=== PATIENT | male | born 1975 | race Caucasian/White ===

== ENCOUNTER 2018-11-12 19:06 | Inpatient (IN) ==
[2018-11-12] MEDS ORDERED: MULTI-VITAMIN INFUSION 10 ML, THIAMINE HCL 100 MG, FOLIC ACID 1 MG in SODIUM CHLORIDE 0... IV ONE (21:43)
[2018-11-12] MEDS ORDERED: LORazepam 1 MG TAB PO PRN (21:43)
[2018-11-12] MEDS ORDERED: FOLIC ACID 1 MG in SYRINGE 9.8 ML IV ONE (22:00)
[2018-11-12] MEDS ORDERED: THIAMINE HCL 100 MG in SYRINGE 9 ML IV ONE (22:00)
--- NOTE | 2018-11-13 04:35 | History & Physical Report ---
Date of Service November 13, 2018 Assessment & Plan (1) Alcohol withdrawal: Mr. Gayle is a 43 year old male with a past medical history of alcohol abuse, resulting in prior DTs and seizures who presents to [facility] as a direct transfer from [facility] for alcohol detoxification. -admit to telemetry -currently hemodynamically stable, EKG shows sinus bradycardia with no ischemic changes -initial labs ordered, including CBC, CMP, coag profile, folate, and B12 levels -toxicology screen at [facility] negative -pt placed on AWSS w/IV Ativan -banana bag, folic acid and thiamine ordered -NPO w/maintenance IVF - NS at 100 mls/hr -seizure precautions in place given hx of withdrawal seizures -low threshold to upgrade to ICU status and begin phenobarbital protocol -ECHO ordered to assess for alcohol induced CM -hold home gabapentin and trazodone -pantoprazole 40mg listed on home medication - will continue Hypertension -propranolol and clonidine listed as home medications, will continue clonidine to avoid rebound hypertension and hold propranolol -unsure if propranolol was prescribed for alternate indication, ie. esophageal varices - pt is unsure of the indication for this medication Tobacco Abuse -smoking cessation counselling Code status: FULL DVT Prophylaxis: SCDs Disposition: admitted to telemetry (2) Hypertension: (3) Tobacco abuse: History of Present Illness Chief Complaint: Alcohol Withdrawal Primary Care Provider: NO PCP Mr. Gayle is a 43 year old male with a past medical history of alcohol abuse, resulting in prior DTs and seizures who presents to [facility] as a direct transfer from [facility] for alcohol detoxification. The patient's last drink was on 11/11/2018 at approx 5PM. He states he has been drinking alcohol for approximately 20 years, and has a fifth of vodka daily. He notes that he has a history of DTs in the past, and has had seizures associated with alcohol withdrawals. He states his last episode of withdrawals was 2-3 months ago, and states that he did not seek medical attention for this. He endorses nausea and vomiting since his last drink, and reports he feels shaky. He denies chest pain, shortness of breath, or abdominal pain. He recently established care with a PCP, and has been started on several medications - all of which he does not remember the indications for. He denies a history of liver cirrhosis, and states he does not think he has a history of gastric/duodenal ulcers. Per review of records from [facility], the patient was administered 2mg IV Ativan prior to transfer, as well as a 1L NS bolus, 100mg IV thiamine, and 1mg IV folic acid. He remained hemodynamically stable during his time at [facility] and his transfer to [facility]. Allergies Allergy/AdvReac Type Severity Reaction Status Date / Time No Known Allergies Allergy Unverified 11/13/18 08:26 Home Medications Home Medications Medication Instructions Recorded Confirmed Type clonidine HCl 0 mg PO BID 11/13/18 11/13/18 History gabapentin 0 mg PO TID 11/13/18 11/13/18 History pantoprazole 0 mg PO DAILY 11/13/18 11/13/18 History propranolol 0 mg PO DAILY 11/13/18 11/13/18 History trazodone 0 mg PO HS 11/13/18 11/13/18 History chlordiazepoxide HCl 25 mg PO UD #12 cap 11/15/18 Rx folic acid 1 mg PO QAM #30 tab 11/15/18 Rx nicotine [Nicoderm CQ] 21 mg TRANSDERMAL QAM #30 ea 11/15/18 Rx thiamine HCl (vitamin B1) [Vitamin 100 mg PO QAM #30 tab 11/15/18 Rx B-1] Past Med/Surg History Social History Preferred Language: Urugu[place] Communication Ability: Effective Guide Tour Required: No Current Living Situation: Alone Feels Safe at Home: Yes Smoking Status: Current every day smoker Tobacco Type: cigarettes ; Cigarettes Per Day: 20 ; Hx Alcohol Use: Yes Alcohol type: hard liquor Hx Substance Use: No Review of Systems Constitutional: + malaise and + anorexia; no fever and no chills Respiratory: no cough, no dyspnea and no wheezing Cardiovascular: no chest pain, no palpitations, no lightheadedness, no syncope, no edema and no calf pain Gastrointestinal: + nausea and + vomiting; no abdominal pain and no change in bowel habits Genitourinary: no dysuria and no urinary frequency Physical Exam Constitutional: WD/WN, vitals as above cooperative; no acute distress Eyes: PERRL, conjunctivae normal, anicteric sclerae Respiratory: normal respiratory effort, lungs clear to auscultation Cardiovascular: RRR, no murmur, no edema Gastrointestinal (Abdomen): Percussion/Palpation: abdomen soft; abdomen nontender, no guarding and abdomen not rigid Skin: no rashes, warm and dry Neurologic: Cranial nerves 2-12 grossly intact 5/5 power in UE and LE Patient answers questions appropriately, but is easily distracted Code Status & VTE Plan VTE Prophylaxis Plan VTE Prophylaxis will be ordered: No Supervising Physician Co-Signing Physician Notes Attending addendum: I have physically seen this patient, have supervised the medical residents activities, and agree with the H&P unless as otherwise noted. Assessment and Plan: Alcohol withdrawal- Admit to monitored bed as transfer from [facility]. AWSS with IV Ativan. Banana bag every morning, followed by normal saline at 100 ml/hour Thiamine and folic acid p.o. Seizure precautions to history of withdrawal seizures Pantoprazole 40 mg p.o. daily. Zofran 4 mg IV every 6 hours as needed Serial CBC with differential, chemistry profile and magnesium level. Hypertension- Transfer records indicate being on propranolol and clonidine. Continue clonidine. Remainder of orders and notations as noted. PG Care Time/CCT Total # of Minutes Spent Total Time Spent with Patient: Total time spent is greater than 50% in coordi nation of care (as documented) at patient's floor/unit and/or counseling patient: Resident Activity Tracking Resident Involvement: Resident Care Provided Care Provided: Adult Hospital Medicine
[2018-11-13] MEDS: SODIUM CHLORIDE 0.9% 1000ML 1,000 ML IV SCH ×3 (04:45→16:42)
[2018-11-13 04:59] LABS: Albumin Level 3.7 gm/dl (3.4-5.0); BUN Creatinine Ratio 26.4 (10-20); Bilirubin Direct 0.3 mg/dl (0-0.2); Calcium 8.7 mg/dl (8.5-10.1); Creatinine Clr Calc Pharmacy 113.3 ml/min; Est GFR (African American) 130.2; Est GFR (Non-African American) 112.4; Potassium 3.9 mmol/L (3.5-5.1)
[2018-11-13 05:01] LABS: INR 1.1 (0.9-1.1); Partial Thromboplastin Time 26.7 Seconds (21.0-31.0); Prothrombin Time 10.8 Seconds (9.0-12.0)
[2018-11-13 05:02] LABS: Albumin Globulin Ratio 0.9 (0.9-2); Bilirubin,Total 1.2 mg/dl (0.2-1); Globulin 4.3 gm/dl (2.5-4.0)
[2018-11-13 05:05] LABS: Hematocrit (blood only) 45.2 % (42-52); Hemoglobin 16.1 g/dL (14.0-18.0); Mean Corpuscular Hemoglobin 34.5 pg (25-34); Mean Corpuscular Hgb Conc 35.6 g/dL (32-36); Mean Corpuscular Volume 96.8 fL (80-100); Mean Platelet Volume 11.2 fL (7.4-10.4); Platelet Count 94 K/uL (130-400); RDW Coefficient of Variation 13.1 % (11.5-14.5); RDW Standard Deviation 45.8 fL (36.4-46.3); Red Blood Count 4.67 M/uL (4.7-6.1); White Blood Count 5.57 K/uL (4.8-10.8)
[2018-11-13 05:06] LABS: Basophils # (auto) 0.04 K/uL (0-0.2); Basophils % (auto) 0.7 %; Eosinophils # (auto) 0.16 K/uL (0-0.5); Eosinophils % (auto) 2.9 %; Immature Granulocytes # (auto) 0.01 K/uL (0.00-0.02); Immature Granulocytes % (auto) 0.2 %; Lymphocytes % (auto) 25.1 %; Monocytes # (auto) 0.62 K/uL (0.11-0.59); Monocytes % (auto) 11.1 %; Neutrophils # (auto) 3.34 K/uL (1.4-6.5); Platelet Estimate Decreased (Normal); RBC Morphology Unremarkable
[2018-11-13] MEDS: PATIENT'S ALLERGY INFO NEEDS ENTERED SCH ×7 (05:42→08:31)
[2018-11-13 08:01] LABS: Folate (Folic Acid) 21.05 ng/ml (>5.38)
[2018-11-13] MEDS: cloNIDine HCl 0.1 MG TAB PO SCH ×2 (08:19→20:45)
[2018-11-13] MEDS: PANTOprazole 40 MG TAB PO SCH (08:19)
[2018-11-13] MEDS ORDERED: chlordiazePOXIDE ALCOHOL WITHDRAWL 50MG PO STA ×2 (08:38→10:38)
[2018-11-13] MEDS ORDERED: chlordiazePOXIDE HCl 25 MG CAP PO SCH (08:45)
[2018-11-13] MEDS ORDERED: PROPRANOLOL HCL 80 MG TAB PO SCH (09:00)
[2018-11-13] MEDS ORDERED: THIAMINE HCL 100 MG in SYRINGE 9 ML IV SCH (09:00)
[2018-11-13] MEDS ORDERED: FOLIC ACID 1 MG in SYRINGE 9.8 ML IV SCH (09:00)
--- NOTE | 2018-11-13 10:17 | Medical Student H&P ---
Date of Service November 13, 2018 History & Physical Identifying Data SAGAR OTERO is a 43-year-old M admitted on November 13, 2018 04:17 who currently lives in [] [alone] with []. SAGAR OTERO was admitted on a [201 voluntary] [302 involuntary] commitment. Patient is admitted from [home] [transfer from the medical floor]. The patient was brought to the ED by the [police] [family] [ambulance] [self transport]. Information provided by the patient is considered to be [reliable] [unreliable]. Chief Complaint "[]". 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 Current Living Situation: Alone Other Information That Helps Us Care for You: No Feels Safe at Home: Yes Safety Concerns: Feels Safe At This Time Smoking Status: Current every day smoker Tobacco Type: cigarettes ; Cigarettes Per Day: 20 ; Do You Dip or Chew Tobacco: No ; Hx Alcohol Use: Yes Alcohol type: hard liquor Hx Substance Use: No Physical Exam Vital Signs (Past 24 Hours) Last Vital Signs Temp 36.7 C 11/13/18 08:00 Pulse 85 11/13/18 09:00 Resp 18 11/13/18 09:00 BP 107/77 11/13/18 09:00 Pulse Ox 99 11/13/18 09:00 Results & Data Medications Administered Clonidine HCl (Catapres) 0.1 mg PO BID RAVIN Stop: 12/13/18 08:59 Last Admin: 11/13/18 08:19 Dose: 0.1 mg Documented by: [id number] Sodium Chloride (Nss 1000ml) 1,000 mls @ 100 mls/hr IV .Q10H RAVIN Stop: 12/12/18 21:44 Last Admin: 11/13/18 07:12 Dose: 80 mls/hr Documented by: [id number] Infusion: 11/13/18 07:12 Dose: 80 mls/hr Documented by: [id number] Admin: 11/13/18 04:45 Dose: 80 mls/hr Documented by: [id number] Thiamine HCl 100 mg/ Syringe 10 mls @ 2 mls/min IV QAM RAVIN Stop: 12/13/18 08:59 Last Admin: 11/13/18 08:22 Dose: 2 mls/min Documented by: [id number] Folic Acid 1 mg/ Syringe 10 mls @ 5 mls/min IV QAM RAVIN Stop: 12/13/18 08:59 Last Admin: 11/13/18 08:22 Dose: 5 mls/min Documented by: [id number] Pantoprazole Sodium (Protonix) 40 mg PO QAM RAVIN Stop: 12/13/18 08:59 Last Admin: 11/13/18 08:19 Dose: 40 mg Documented by: [id number]
[2018-11-13] MEDS ORDERED: NICOTINE 21 MG/24 HR TDSY TD ONE (11:00)
[2018-11-13 11:03] LABS: Amphetamines+Metham, Urine Neg (Neg); Barbiturates, Urine Neg (Neg); Benzodiazepine, Urine Neg (Neg); Cocaine, Urine Neg (Neg); MDMA (Ecstacy), Urine Neg (Neg); Methadone, Urine Neg (Neg); Opiate, Urine Neg (Neg); Phencyclidine, Urine Neg (Neg)
[2018-11-13] MEDS: chlordiazePOXIDE HCl 25 MG CAP PO SCH ×3 (12:14→22:31)
[2018-11-14] MEDS: chlordiazePOXIDE HCl 25 MG CAP PO SCH ×3 (05:32→18:55)
[2018-11-14] MEDS: SODIUM CHLORIDE 0.9% 1000ML 1,000 ML IV SCH (05:33)
[2018-11-14] MEDS: THIAMINE HCL 100 MG TAB PO SCH (08:16)
[2018-11-14] MEDS: cloNIDine HCl 0.1 MG TAB PO SCH ×2 (08:16→20:56)
[2018-11-14] MEDS: NICOTINE 21 MG/24 HR TDSY TD SCH (08:16)
[2018-11-14] MEDS: FOLIC ACID 1 MG TAB PO SCH (08:16)
[2018-11-14] MEDS: PANTOprazole 40 MG TAB PO SCH (08:16)
--- NOTE | 2018-11-14 12:02 | Medical Student Progress Note ---
Date of Service November 14, 2018 Assessment & Plan (1) Alcohol withdrawal: Mr. Gayle is a 43 year old male with a past medical history of alcohol abuse, resulting in prior DTs and seizures who presents to [facility] as a direct transfer from [facility] for alcohol detoxification. -admit to telemetry -currently hemodynamically stable, EKG shows sinus bradycardia with no ischemic changes -initial labs ordered, including CBC, CMP, coag profile, folate, and B12 levels -toxicology screen at [facility] negative -pt placed on AWSS w/IV Ativan -banana bag, folic acid and thiamine ordered -NPO w/maintenance IVF - NS at 100 mls/hr -seizure precautions in place given hx of withdrawal seizures -low threshold to upgrade to ICU status and begin phenobarbital protocol -ECHO ordered to assess for alcohol induced CM -hold home gabapentin and trazodone -pantoprazole 40mg listed on home medication - will continue Hypertension -propranolol and clonidine listed as home medications, will continue clonidine to avoid rebound hypertension and hold propranolol -unsure if propranolol was prescribed for alternate indication, ie. esophageal varices - pt is unsure of the indication for this medication Tobacco Abuse -smoking cessation counselling Code status: FULL DVT Prophylaxis: SCDs Disposition: admitted to telemetry (2) Hypertension: (3) Tobacco abuse: Supervising Attestation This is a medical student note. Subjective Mr. Gayle states he is feeling better today. I spoke with the nurse who states he has been alert/oriented, sinus bradycardia, blood pressure is down, appears anxious/restless, and tremors have mostly resolved. As of this assessment, pt has received 4 doses of 50mg chlorodiazepoxide PO Q6H, and 0 for alcohol agitation scale. Nursing states would like to ask Dr. Colindres if pt's fluids can be stopped since pt is now eating and drinking normally, and if pt can be either downgraded to medical or be discharged. Mr. Gayle states he slept on/off last night, and he is starting to feel restless wanting to be discharged soon. He states he has regained his appetite, and has finished all meals that have been provided. He states he is still having slight tremors in his hands, but he does not endorse any palpitations, no headache, no alcohol cravings, no nausea/vomiting. I spoke with the patient about his plans and desires regarding alcoholism going forward. Pt states his mother wants him to go into rehab, which he has tried but he feels it has not been helpful in the past. He instead wants to pursue 1 on 1 counseling with professional on an outpatient basis. Pt states this is something he wants for himself. Short term goals would be to take things day by day, and [facility] goals/motivations include health, appetite, job security, police record, wanting to take up hobbies such as fishing, reading, exercise, happier emotional state, meaningful relationships, and getting back to creative writing. Review of Systems Constitutional: + increased appetite; no malaise and no anorexia Respiratory: no dyspnea Cardiovascular: no chest pain, no dyspnea and no palpitations Gastrointestinal: no abdominal pain and no change in bowel habits Physical Exam Constitutional: WD/WN, vitals as above cooperative; no acute distress Eyes: sclerae not anicteric Respiratory: normal respiratory effort, lungs clear to auscultation Cardiovascular: Rate/Rhythm: regular rate and regular rhythm Heart Sounds: normal S1 and normal S2 Gastrointestinal (Abdomen): Inspection/Auscultation: normal bowel sounds Percussion/Palpation: abdomen soft; abdomen nontender, no guarding, abdomen not rigid and no hepatomegaly Skin: no rashes, warm and dry Results & Data Vital Signs (Past 12 Hours) Vital Signs Temp Pulse Resp BP Pulse Ox 11/14/18 08:19 66 15 11/14/18 08:18 64 18 107/70 97 11/14/18 07:00 47 L 11 L 11/14/18 06:45 52 L 12 11/14/18 05:35 36.9 C 59 L 16 107/69 99 11/14/18 00:12 36.8 C 65 15 98/65 L 97
--- NOTE | 2018-11-14 22:24 | Hospitalist Progress Note ---
Date of Service November 14, 2018 Assessment & Plan (1) Alcohol withdrawal: Patient is here for alchool withdrawal. Patient is still in window of getting delirum tremens. Patient has history of DT. Tomorrow patient will be closer to 96 hour mahamed. If patient is doing well, will discharge on librium taper. Patient states he will no longer drink. Will provide information of ist of couselors. (2) Hypertension: Will resume his home meds. BP appears controlles. (3) Tobacco abuse: Patient is placed on nicotine patch 21 mg Spent 35 minutes in management of patient. This included conversation with parents of patient. Subjective 43 yo male reports feeling better. He reports he is close to his baseline. Patient currently denies hallucinations, nausea, vomiting, diarrhea. Review of Systems Review of Systems: All systems reviewed & are unremarkable except as noted in HPI & below Physical Exam Physical Exam: Constitutional: WD/WN, vitals as above cooperative; no acute distress Eyes: PERRL, conjunctivae normal, anicteric sclerae Respiratory: normal respiratory effort, lungs clear to auscultation Cardiovascular: RRR, no murmur, no edema Gastrointestinal (Abdomen): Percussion/Palpation: abdomen soft; abdomen nontender, no guarding and abdomen not rigid Skin: no rashes, warm and dry Neurologic: Cranial nerves 2-12 grossly intact 5/5 power in UE and LE Patient answers questions appropriately, but is easily distracted Results & Data Vital Signs (Past 12 Hours) Vital Signs Temp Pulse Pulse Pulse Resp BP BP 11/14/18 19:08 36.6 C 73 18 125/85 11/14/18 17:53 113/69 11/14/18 15:00 58 L 11/14/18 14:30 54 L 15 11/14/18 14:00 57 L 17 11/14/18 13:33 61 16 11/14/18 12:22 70 18 107/72 11/14/18 12:21 107/72 11/14/18 11:54 97 H 18 11/14/18 11:00 63 15 11/14/18 10:30 66 14 Pulse Ox 11/14/18 19:08 99 11/14/18 17:53 11/14/18 15:00 11/14/18 14:30 11/14/18 14:00 11/14/18 13:33 11/14/18 12:22 96 11/14/18 12:21 11/14/18 11:54 11/14/18 11:00 11/14/18 10:30 PG Care Time/CCT Total # of Minutes Spent Total Time Spent with Patient: Total time spent is greater than 50% in coordination of care (as documented) at patient's floor/unit and/or counseling patient:
[2018-11-15] MEDS: chlordiazePOXIDE HCl 25 MG CAP PO SCH ×2 (03:40→11:01)
[2018-11-15] MEDS: PANTOprazole 40 MG TAB PO SCH (08:06)
[2018-11-15] MEDS: cloNIDine HCl 0.1 MG TAB PO SCH (08:06)
[2018-11-15] MEDS: THIAMINE HCL 100 MG TAB PO SCH (08:06)
[2018-11-15] MEDS: FOLIC ACID 1 MG TAB PO SCH (08:06)
[2018-11-15] MEDS: NICOTINE 21 MG/24 HR TDSY TD SCH (08:07)
--- NOTE | 2018-11-24 14:57 | Discharge Summary ---
Date of Service November 15, 2018 Principal Diagnosis alcohol withdrawal Discharge Exam Constitutional: WD/WN, vitals as above cooperative; no acute distress Eyes: PERRL, conjunctivae normal, anicteric sclerae Respiratory: normal respiratory effort, lungs clear to auscultation Cardiovascular: RRR, no murmur, no edema Gastrointestinal (Abdomen): Percussion/Palpation: abdomen soft; abdomen nontender, no guarding and abdomen not rigid Skin: no rashes, warm and dry Neurologic: Cranial nerves 2-12 grossly intact 5/5 power in UE and LE Patient answers questions appropriately Discharge Data Allergies Allergy/AdvReac Type Severity Reaction Status Date / Time No Known Allergies Allergy Unverified 11/13/18 08:26 Consultations 11/12/18 21:43 Consult Case Management - Discharge Planning Routine Hospital Course (1) Alcohol withdrawal: Patient is here for alchool withdrawal. Patient is still in window of getting delirum tremens. Patient has history of DT. Tomorrow patient will be closer to 96 hour mahamed. If patient is doing well, will discharge on librium taper. Patient states he will no longer drink. Will provide information of ist of counselors.Patient is out of window of DT's (2) Hypertension: Will resume his home meds. BP appears controlles. (3) Tobacco abuse: Patient is placed on nicotine patch 21 mg This included conversation with parents of patient. Total Time Total Time Spent Total Time Spent (In Minutes): 32 Total Time Includes: Examination of the Patient, Discharge Planning and Medication Reconciliation Discharge Plan Discharge Items Patient Disposition: Home - Self-Care Reason For Visit: ALCOHOL WITHDRAWAL Discharge Diagnosis: Alcohol withdrawal Activity: Resume your previous activity Non-emergency contact: Primary Care Provider Call non-emergency contact if: you have any medication questions Follow-up/Referrals: PCP,NO [Primary Care Provider] - Diet: Regular Addtl Attending Provider Instructions: You were seen for alcohol withdrawal. You will be on librium (chlordiazepoxide 25 mg taper dose. Do not take alcohol with this medicine. You can not operate heavy machinery with this medicine either. 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 Instructions: F/U with PCP in 1-2 weeks Followup with psychologist for behavior therapy Pending Studies at Discharge: No Stand-Alone [facility] and [facility] Order Prescriptions: New thiamine HCl (vitamin B1) [Vitamin B-1] 100 mg Tablet 100 mg PO QAM Qty: 30 RF: 0 nicotine [Nicoderm CQ] 21 mg/24 hr Patch 24 Hour 21 mg transdermal QAM Qty: 30 RF: 0 folic acid 1 mg Tablet 1 mg PO QAM Qty: 30 RF: 0 chlordiazepoxide HCl 25 mg capsule 25 mg PO UD Qty: 12 RF: 0 Continued gabapentin 600 mg Tablet PO TID RF: 0 clonidine HCl 0.1 mg Tablet PO BID RF: 0 propranolol 60 mg Capsule,Extended Release 24 Hr PO DAILY RF: 0 pantoprazole 40 mg Tablet,Delayed Release (Dr/Ec) PO DAILY RF: 0 trazodone 150 mg Tablet PO HS RF: 0 Discharge Orders: Discharge Order (Routine); Ordered 11/15/18 Ordered By: James Colindres Admission Data Admit Date/Time: 11/13/18 04:17 Attending Provider: James Colindres Admit Provider: Brittany Lawler Primary Care Provider: PCP,NO Other Interventions: Discharge Summary Assessment (RN) Last Done: 11/15/18 10:21 DC Date/Time DO NOT enter until pt leaves facility: 11/15/18 10:30
== END 2018-11-15 10:30 | disposition home or self-care (01) | DRG 897 ==
LOC: SUATTDRO 11-13 04:17 → 1E 11-13 04:17 → 4W 11-14 19:04